=== PATIENT | female | born 1980 | race Hispanic/Latino ===

== ENCOUNTER 2017-03-15 08:22 | Outpatient (CLI) | payer OTHER ==
--- NOTE | 2017-03-15 09:55 | Fluoroscopy Report ---
FLUORO GUIDED HSG INDICATION: Chronic salpingitis and left tubal occlusion. COMPARISON: None similar at this institution. FINDINGS: Hysterosalpingogram performed with cervix cannulated using standard sterile precautions. Preliminary radiograph demonstrates no significant abnormality. Injection of 14 cc of Omnipaque-300 under fluoroscopy demonstrates normal uterine cavity/contours. Prompt opacification of bilateral fallopian tubes with free intraperitoneal spill noted on the right. Left fallopian tube caliber appears slightly more prominent distally and/or somewhat loculated contrast collection as on image 6 with minimal intraperitoneal spill not entirely excluded as on image 8 versus venous intravasation. CONCLUSION: Normal uterus and patent right fallopian tube, though left fallopian tube not confirmed patent, as described. Please correlate. Thank you for the opportunity to participate in this patient's care.
== END 2017-03-15 08:23 | disposition home or self-care (01) ==
LOC: FLUORO 08:22
PROVIDERS: ATTEND Obstetrics & Gynecology
DX: N70.11 Chronic salpingitis (principal); N97.1 Female infertility of tubal origin
CPT/HCPCS: 58340; 74740; Q9967